=== PATIENT | female | born 1980 | race Caucasian/White ===

== ENCOUNTER 2016-09-14 16:38 | Outpatient (CLI) | payer MEDICAID ==
[~2016-09-14] VITALS: Ht 157.5 cm; Wt 78.2 kg
[2016-09-14 16:53] VITALS: Ht 157.5 cm; Wt 78.2 kg
[2016-09-14 16:54] VITALS: BP 111/72; PULSE 77; RESP 20
--- NOTE | 2016-09-14 19:23 | RADRPT ---
PROCEDURE: OB ultrasound for biophysical profile CLINICAL INDICATION: Biophysical profile. . TECHNIQUE: Multiple sonographic images of the pelvis were obtained. Transabdominal views are obta ined. COMPARISON: 09/12/2016 FINDINGS: Single intrauterine gestation. Presentation: Cephalic. Placenta: Anterior. No evidence of placental abruption. No evidence of placenta previa. breathing movement = 2/2 tone = 2/2 motion = 2/2 JOSHUA = 2/2 JOSHUA = 7.3 cm heart rate: 140 beats per minute IMPRESSION: Single intrauterine gestation. Biophysical profile 12/09 RPTAT: AADD .Melvin Aiken MD, MD Date Time Electronically viewed and signed by .Melvin Aiken MD, on 09/14/2016 19:22 .B/
--- NOTE | 2016-09-14 20:35 | TRIAGE ---
OB Triage Datetime Report Generated by CPN: 09/14/2016 20:35 Datetime: 09/14/2016 19:20 Membrane Status: Intact Datetime: 09/14/2016 18:58 Labor Evaluation Frequency: 4-9 Monitor Mode: External Duration (sec)2399: 50-120 Quality: Mild Pattern: Normal: <= 5 Contractions in 10 Minutes Resting Tone [place]: Relaxed Heart Rate FHR Baseline Rate: 130 Monitor Mode: External US FHR Baseline Changes: No Baseline Change Variability: Moderate 6-25 bpm Accelerations: 15X15 Decelerations: None Datetime: 09/14/2016 17:51 Headache: Denies Blurred Vision: No RUQ Epigastric Pain: Denies Facial Edema: None Labor Evaluation Frequency: irr Monitor Mode: External Duration (sec)2399: 60 Quality: Mild Pattern: Normal: <= 5 Contractions in 10 Minutes Resting Tone [place]: Relaxed Heart Rate FHR Baseline Rate: 150 Monitor Mode: External US FHR Baseline Changes: No Baseline Change Variability: Moderate 6-25 bpm Accelerations: 15X15 Decelerations: None Category: Category I Datetime: 09/14/2016 16:55 Vaginal Exam Dilatation (cms): 1.5 Effacement (%): 50 Station: -3 Exam By: PEDRO FARZIER [facility] Vaginal Bleeding: Normal Show Cervix, Consistency: Soft Cervix, Position: Posterior Datetime: 09/14/2016 16:41 Stage of : OB Triage Time of Arrival: 09/14/2016 16:41 EGA: 39.3 Arrived By: Ambulatory Arrived From: Home Chief Complaint: posible rom and bleeding Movement: Present Contractions: Irregular Time Contractions Began: 09/14/2016 16:00 Rupture of Membranes: Unsure Vaginal Discharge: Denies Recent Sexual Intercouse: Denies Abdominal Trauma: Not Applicable Patient Complaints: Other Time Provider Notified: 09/14/2016 17:50 Initial Plan: efm Maternal Assessment Level of Consciousness: Fully Conscious DTR's/Clonus: DTRs 2+; No Clonus Headache: Denies Blurred Vision: No Respiratory Effort: Unlabored; Regular Rhythm; Equal Expansion Breath Sounds, Left: Clear and Equal Breath Sounds, Right: Clear and Equal Nausea/Vomiting: Denies RUQ Epigastric Pain: Denies Lower Extremities Edema: None Degree: None Upper Extremities Edema: None Degree: None Facial Edema: None Temperature Route: Axillary Fall Risk Assessment History of Falling: (0) No Secondary Diagnosis: (0) No Ambulatory Aid: (0) Bedrest/Nurse Assist IV Therapy: (0) No Gait: (0) Normal/Bedrest/Immobile Mental Status: (0) Oriented to Own Ability Fall Score: 0 Fall Risk Score Definition: No Risk: No action required Labor Evaluation Frequency: none Monitor Mode: External Heart Rate FHR Baseline Rate: 136 Monitor Mode: External US FHR Baseline Changes: No Baseline Change Variability: Moderate 6-25 bpm Accelerations: 15X15 Decelerations: None Category: Category I Pain Assessment Pain Scale: 0
[2016-09-15] MEDS ORDERED: PRENAT PO (17:42)
--- NOTE | 2016-11-20 18:29 | PN ---
Triage Information Date/Time 09/14/16 Weeks of Gestation 39 : 4 Para: 0 Assessment/Plan CONTRACTIONS SHARON SIMPSON MD Nov 20, 2016 18:29
== END 2016-09-14 20:00 | disposition home or self-care (01) ==
LOC: OBT 16:38 → L-D 16:39 → OBT 20:00
PROVIDERS: ATTEND Obstetrics & Gynecology
DX: O62.9 Abnormality of forces of labor, unspecified (principal); Z3A.39 39 weeks gestation of pregnancy
CPT/HCPCS: 76818; G0463

== ENCOUNTER 2016-09-15 17:27 | Inpatient (IN) | payer MEDICAID ==
[~2016-09-15] VITALS: Ht 157.5 cm; Wt 78.5 kg
[2016-09-15 17:39] VITALS: Ht 157.5 cm; Wt 78.5 kg
[2016-09-15 17:40] VITALS: BP 112/69; PULSE 89; RESP 19
[2016-09-15] MEDS ORDERED: PRENAT PO (17:42)
[2016-09-15] MEDS ORDERED: LACTATED RINGER'S 1,000 ML IV SCH (17:54)
[2016-09-15] MEDS ORDERED: AMPICILLIN 2 GM/NS (PMX) 100 ML IV ONE (18:00)
[2016-09-15] MEDS ORDERED: LIDOCAINE 1% (MPF) 30 ML INJ INJ PRN (18:00)
[2016-09-15] MEDS ORDERED: IBUPROFEN 600 MG TAB PO PRN (18:00)
[2016-09-15] MEDS ORDERED: CARBOPROST 250 MCG INJ IM PRN ×2 (18:00→20:30)
[2016-09-15] MEDS ORDERED: BUTORPHANOL 2 MG INJ IV PRN (18:00)
[2016-09-15] MEDS ORDERED: MISOPROSTOL 200 MCG TAB PR PRN ×2 (18:00→20:30)
[2016-09-15] MEDS ORDERED: OXYTOCIN 30 UNITS/LR 500 ML IV PRN ×2 (18:00→20:30)
[2016-09-15] MEDS ORDERED: METHYLERGONOVINE 0.2 MG INJ IM PRN ×2 (18:00→20:30)
[2016-09-15] MEDS ORDERED: OXYTOCIN 30 UNITS/LR 500 ML IV SCH (18:00)
--- NOTE | 2016-09-15 18:25 | TRIAGE ---
OB Triage Datetime Report Generated by CPN: 09/15/2016 18:24 Datetime: 09/15/2016 17:58 Stage of : OB Triage Datetime: 09/15/2016 17:50 Frequency: 10 Monitor Mode: External Duration (sec)2399: 50-90 Quality: Mild Pattern: Normal: <= 5 Contractions in 10 Minutes Resting Tone [place]: Relaxed FHR Baseline Rate: 140 Monitor Mode: External US Variability: Moderate 6-25 bpm Accelerations: 15X15 Decelerations: Late; Variable Category: Category II Pain Scale: 7 Pain Presence: Intermittent Pain Type: Contraction Pain Location: Abdomen Pain Relief Measures: Comfort Measures Datetime: 09/15/2016 17:43 Dilatation (cms): 7.0 Effacement (%): 80 Station: -2 Exam By: bjacobo Vaginal Bleeding: Small Datetime: 09/15/2016 17:37 Assessment Type: Triage Level of Consciousness: Fully Conscious DTR's/Clonus: DTRs 2+; No Clonus Headache: Denies Blurred Vision: No Respiratory Effort: Unlabored; Regular Rhythm; Equal Expansion Breath Sounds, Left: Clear and Equal Breath Sounds, Right: Clear and Equal Nausea/Vomiting: Denies RUQ Epigastric Pain: Denies Lower Extremities Edema: None Upper Extremities Edema: None Facial Edema: None History of Falling: (0) No Secondary Diagnosis: (0) No Ambulatory Aid: (0) Bedrest/Nurse Assist IV Therapy: (0) No Gait: (0) Normal/Bedrest/Immobile Mental Status: (0) Oriented to Own Ability Fall Score: 0 Fall Risk Score Definition: No Risk: No action required Datetime: 09/15/2016 17:35 Time of Arrival: 09/15/2016 17:20 EGA: 39.4 Arrived By: Wheelchair Arrived From: Home Chief Complaint: UCs since 0800 this morning Movement: Present Contractions: Irregular Time Contractions Began: 09/15/2016 08:00 Contractions: 10 Rupture of Membranes: Denies Vaginal Bleeding: None Vaginal Discharge: Present Recent Sexual Intercouse: Denies Abdominal Trauma: Not Applicable Patient Complaints: Contractions Time Provider Notified: 09/15/2016 17:49 Provider Notified: Luis Initial Plan: Bi GODOY, Notify OB
--- NOTE | 2016-09-15 18:27 | RADRPT ---
PROCEDURE: Obstetrical ultrasound CLINICAL INDICATION: Bleeding TECHNIQUE: Multiple sonographic images of the pelvis were obtained. The images were reviewed on a PACS workstation. COMPARISON: Obstetrical ultrasound from 09/14/2016 FINDINGS: The cervix is not well visualized. There is a single viable intrauterine gestation. Cardiac activity is present with 125 beats per minute. There is a vertex presentation. The placenta is anterior. There is no evidence for an abruption or placenta previa. There is a subjectively normal amount of amniotic fluid. Measurements were made in order to determine age. The results are as follows (cm): BPD =9.18 HC =32.64 AC =37.81 FL =7.53 Estimated gestational age by ultrasound of approximately 38 weeks, 5 days. The estimated date of delivery by ultrasound is 09/24/2016. Estimated gestational age by LMP of approximately 39 weeks, 4 days. The estimated date of delivery by LMP is 09/18/2016. EFW = 3932 grams (80th percentile) IMPRESSION: Single viable intrauterine gestation of approximately 38 weeks, 5 days . The estimated date of delivery is 09/24/2016 . Dating by ultrasound is within 6 days of dating by LMP. Cephalic presentation. Estimated weight is in the 80th percentile. Anterior placenta without evidence of placenta previa or abruption. RPTAT: EE Physician Meena Date Time Electronically viewed and signed by Physician Meena on 09/15/2016 18:26 /
[2016-09-15 18:30] LABS: ADD SCAN DIFF NO
[2016-09-15 18:35] LABS: BASOPHILS % 0.3 % (0.0-2.0); EOSINOPHILS % 0.3 % (0.0-7.0); HEMATOCRIT 38.9 % (37.0-47.0); HEMOGLOBIN 13.1 g/dl (12.0-16.0); LYMPHOCYTES % 12.8 % (15.0-51.0); MEAN CORPUSCULAR HEMOGLOBIN 30.1 pg (29.0-33.0); MEAN CORPUSCULAR HGB CONC 33.7 g/dl (32.0-37.0); MEAN CORPUSCULAR VOLUME 89.4 fl (82.0-101.0); MEAN PLATELET VOLUME 11.6 fl (7.4-10.4); MONOCYTE # 0.8 10^3/ul (0.3-0.9); MONOCYTES % 9.5 % (0.0-11.0); NEUTROPHIL # 6.1 10^3/ul (1.6-7.5); NEUTROPHILS % 76.6 % (39.0-77.0); PLATELET COUNT 166 10^3/UL (140-415); RED BLOOD COUNT 4.35 10^6/ul (4.20-5.40); RED CELL DISTRIBUTION WIDTH 13.2 % (11.5-14.5)
--- NOTE | 2016-09-15 18:35 | HP ---
Date/Time of Note Date/Time of Note DATE: 09/15/16 TIME: 18:35 OB - History Hx of Present Free Text/Dictation iup 38 weeks in labor [id number] Care: Good Care Ultrasounds: Other Medical Complications: None Past Family/Social History * Past Medical, Surgical, Family and Obstetric Histories reviewed from chart. OB Admission Exam Vital Signs Vital Signs Vital Signs Date Time Temp Pulse Resp B/P Pulse Ox O2 Delivery O2 Flow Rate FiO2 09/15/16 17:40 97.7 89 19 112/69 Room Air OB Assessment/Plan Plan: Expectant Management LORIN ISABEL MD September 15, 2016 18:35
[2016-09-15] MEDS ORDERED: LACTATED RINGER'S 1,000 ML IV PRN (19:00)
[2016-09-15 19:01] LABS: INR 0.88; PARTIAL THROMBOPLASTIN TIME 27.5 Sec (25.0-35.0); PROTIME 11.9 Sec (12.2-14.2); PT RATIO 0.9
[2016-09-15] MEDS: OXYTOCIN 30 UNITS/LR 500 ML IV SCH ×2 (19:40→22:22)
[2016-09-15] MEDS ORDERED: DEXTROSE 5%-LR 1,000 ML IV SCH (20:24)
--- NOTE | 2016-09-15 20:24 | LDN ---
Date/Time of Note Date/Time of Note DATE: 09/15/16 TIME: 20:22 Delivery Summary 36 y/o at 39 4/7 wks delivered a male over intact perineum Weight: 7 lbs 11 oz [place]: 12/10 Time of delivery: 19:30 EBL: 200 ml Placenta Delivered: Spontaneously Meconium: none Episiotomy: No Anesthesia type: None Estimated blood loss: 200 Sponge & Needle done & correct: Yes All needle counts correct: Yes Any foreign bodies felt in the: No Problems: Infant Delivery Information Sex Sex: male Apgars 1 Minute: 8 5 Minute: 9 10 Minute: 10 Suctioning Nose & mouth suctioned at jean: Yes Umbilical Cord Umbilical cord with: 3 Vessels Cord presentations: nuchal cord (x1) Cord Blood was obtained: Yes JULIA DOYLE September 15, 2016 20:24
[2016-09-15] MEDS ORDERED: SENNA/DOCUSATE NA (8.6MG/50MG) TAB PO PRN (20:30)
[2016-09-15] MEDS ORDERED: DIBUCAINE 1% 30 GM OINT PR PRN (20:30)
[2016-09-15] MEDS ORDERED: OXYCODONE/ASPIRIN (4.88/325) TAB PO PRN (20:30)
[2016-09-15] MEDS ORDERED: ACETAMINOPHEN 325 MG TAB PO PRN (20:30)
[2016-09-15] MEDS ORDERED: ONDANSETRON 4 MG INJ IV PRN (20:30)
[2016-09-15] MEDS ORDERED: WITCH HAZEL/GLYCERIN PAD PR PRN (20:30)
[2016-09-15] MEDS ORDERED: DIPHENHYDRAMINE 50 MG INJ IV PRN (20:30)
[2016-09-15] MEDS ORDERED: BENZOCAINE 20% 56 ML SPRAY TOP PRN (20:30)
[2016-09-15] MEDS ORDERED: ZOLPIDEM 5 MG TAB PO PRN (20:30)
[2016-09-15 21:30] VITALS: BP 117/84; PULSE 65; RESP 18
[2016-09-15 22:00] VITALS: BP 114/66; PULSE 65; RESP 18
[2016-09-15] MEDS ORDERED: AMPICILLIN 1 GM/NS (PMX) 50 ML IV SCH (22:00)
[2016-09-15] MEDS: LANOLIN 7 GM TUBE TOP PRN (22:23)
[2016-09-16] VITALS: BP 100/58; PULSE 68; RESP 18
[2016-09-16] MEDS: IBUPROFEN 600 MG TAB PO SCH ×5 (00:28→23:33)
[2016-09-16] MEDS: LACTATED RINGER'S 1,000 ML IV* SCH ×2 (02:44→04:24)
[2016-09-16 04:00] VITALS: BP 102/53; PULSE 73; RESP 18
[2016-09-16 08:15] VITALS: BP 97/54; PULSE 68; RESP 18
[2016-09-16 08:16] LABS: ADD SCAN DIFF NO
[2016-09-16 08:47] LABS: BASOPHILS % 0.1 % (0.0-2.0); EOSINOPHILS % 0.4 % (0.0-7.0); HEMATOCRIT 33.4 % (37.0-47.0); HEMOGLOBIN 11.3 g/dl (12.0-16.0); LYMPHOCYTES # 1.2 10^3/ul (0.8-2.9); LYMPHOCYTES % 14.9 % (15.0-51.0); MEAN CORPUSCULAR HEMOGLOBIN 30.3 pg (29.0-33.0); MEAN CORPUSCULAR HGB CONC 33.8 g/dl (32.0-37.0); MEAN CORPUSCULAR VOLUME 89.5 fl (82.0-101.0); MEAN PLATELET VOLUME 12.1 fl (7.4-10.4); MONOCYTE # 0.7 10^3/ul (0.3-0.9); NEUTROPHIL # 6.2 10^3/ul (1.6-7.5); NEUTROPHILS % 74.8 % (39.0-77.0); PLATELET COUNT 140 10^3/UL (140-415); RED BLOOD COUNT 3.73 10^6/ul (4.20-5.40); RED CELL DISTRIBUTION WIDTH 13.2 % (11.5-14.5); WHITE BLOOD COUNT 8.3 10^3/ul (4.8-10.8)
[2016-09-16] MEDS: MULTIVIT/MIN/FOLATE/IRON/PREN TAB PO SCH (09:37)
--- NOTE | 2016-09-16 09:45 | PN ---
Date/Time of Note Date/Time of Note DATE: 09/16/16 TIME: 09:44 OB Subjective Subjective Subjective day 1 Afebrile VSs stable abdomen soft uterus firm lochia normal extremity normal ambulation encouraged Laboratory Tests Test 09/15/16 16:26 09/16/16 07:35 White Blood Count 8.010^3/ul 8.310^3/ul Red Blood Count 4.3510^6/ul 3.7310^6/ul Hemoglobin 13.1g/dl 11.3g/dl Hematocrit 38.9% 33.4% Mean Corpuscular Volume 89.4fl 89.5fl Mean Corpuscular Hemoglobin 30.1pg 30.3pg Mean Corpuscular Hemoglobin Concent 33.7g/dl 33.8g/dl Red Cell Distribution Width 13.2% 13.2% Platelet Count 71338^3/UL 51163^3/UL Mean Platelet Volume 11.6fl 12.1fl Neutrophils % 76.6% 74.8% Lymphocytes % 12.8% 14.9% Monocytes % 9.5% 9.0% Eosinophils % 0.3% 0.4% Basophils % 0.3% 0.1% Nucleated Red Blood Cells % 0.0/100WBC 0.0/100WBC Neutrophils # 6.110^3/ul 6.210^3/ul Lymphocytes # 1.010^3/ul 1.210^3/ul Monocytes # 0.810^3/ul 0.710^3/ul Eosinophils # 0.010^3/ul 0.010^3/ul Basophils # 0.010^3/ul 0.010^3/ul Nucleated Red Blood Cells # 0.010^3/ul 0.010^3/ul Prothrombin Time 11.9Sec Prothrombin Time Ratio 0.9 INR International Normalized Ratio 0.88 Activated Partial Thromboplast Time 27.5Sec Glucose Level 91mg/dl Hepatitis B Surface Antigen NEGATIVE Current Medications Medications (Trade) Dose Ordered Sig/[place] Route PRN Reason Start Time Stop Time Status Last Admin Dose Admin Lactated Ringer's 1,000 ml @ 125 mls/hr Q8H IV 09/15/16 17:54 09/15/16 21:54 DC 09/15/16 18:13 Ampicillin 100 ml @ 100 mls/hr ONCE ONCE IV 09/15/16 18:00 09/15/16 18:59 DC 09/15/16 18:13 Ampicillin (Ampicillin 1 Gm/ NS (Pmx)) 50 ml @ 100 mls/hr Q4H IV 09/15/16 22:00 09/15/16 22:00 DC Butorphanol Tartrate (Stadol) 2 mg Q2H PRN IV PAIN 09/15/16 18:00 09/15/16 21:54 DC Lidocaine 30 ml 30 ml ONCE PRN INJ EPISIOTOMY/TEARING 09/15/16 18:00 09/15/16 21:54 DC Oxytocin/Lactated Ringer's 500 ml @ 125 mls/hr ONCE -MAY REPEAT X1 IV 09/15/16 18:00 09/15/16 22:22 Oxytocin/Lactated Ringer's 500 ml @ 125 mls/hr ONCE IV 09/15/16 18:00 09/15/16 21:54 DC 09/15/16 20:15 Ibuprofen 600 mg 600 mg ONCE PRN PO Mild Pain (Pain Score 1-3) 09/15/16 18:00 09/15/16 21:54 DC Lactated Ringer's 1,000 ml @ 2,000 mls/hr Q30M PRN IV PRE-EPIDURAL BOLUS 09/15/16 19:00 09/15/16 21:54 DC Oxytocin/Lactated Ringer's 500 ml @ 0 mls/hr ONCE PRN IV For Hemorrhage Management 09/15/16 18:00 Methylergonovine Maleate (Methergine) 0.2 mg ONCE PRN IM VAGINAL BLEEDING 09/15/16 18:00 09/15/16 21:54 DC 09/15/16 19:58 Carboprost Tromethamine (Hemabate) 250 mcg ONCE PRN IM VAGINAL BLEEDING 09/15/16 18:00 09/15/16 21:54 DC Misoprostol 1000 mcg 1,000 mcg ONCE PRN [place] VAGINAL BLEEDING 09/15/16 18:00 09/15/16 21:54 DC Lactated Ringer's (Lr) 1,000 ml @ 125 mls/hr Q8H IV* 09/15/16 20:24 09/16/16 02:44 Ibuprofen (Motrin) 600 mg Q6 PO 09/16/16 00:00 09/16/16 06:11 Acetaminophen (Tylenol Tab) 650 mg Q4H PRN PO PAIN LEVEL 1-5 09/15/16 20:30 Oxycodone/Aspirin (Percodan) 1 tab Q3H PRN PO PAIN LEVEL 1-5 09/15/16 20:30 Ondansetron HCl (Zofran Inj) 4 mg Q6H PRN IV NAUSEA AND/OR VOMITING 09/15/16 20:30 Diphenhydramine HCl (Benadryl) 25 mg Q6H PRN IV PRURITUS 09/15/16 20:30 09/15/16 21:54 DC Zolpidem Tartrate (Ambien) 5 mg QHS PRN PO INSOMNIA 09/15/16 20:30 Senna/Docusate Sodium (Senokot-S) 1 tab BID PRN PO CONSTIPATION 09/15/16 20:30 Witch Tatiana/ Glycerin (Tucks Pads) 1 pad BEDSIDE MEDICATION PRN [place] HEMORRHOID/EPISIOTMY PAIN 09/15/16 20:30 Benzocaine (Dermoplast Muse) 1 spray BEDSIDE MEDICATION PRN TOP HEMORRHOID/EPISIOTMY PAIN 09/15/16 20:30 09/15/16 22:23 Dibucaine (Nupercainal) 1 applic BEDSIDE MEDICATION PRN [place] HEMORRHOID/EPISIOTMY PAIN 09/15/16 20:30 Lanolin (Bot-R-Sbtwyt) 1 applic BEDSIDE MEDICATION PRN TOP BEDSIDE FOR RICH TO NIPPLES 09/15/16 20:30 09/15/16 22:23 Measles/Mumps/ Rubella Vaccine Live (Mmr Ii Vaccine) 0.5 ml ONCE ONCE SC* 09/17/16 09:00 09/17/16 09:01 Diphtheria/ Tetanus/Acell Pertussis 0.5 ml 0.5 ml ONCE ONCE IM* 09/17/16 09:00 09/17/16 09:01 Oxytocin/Lactated Ringer's 500 ml @ 0 mls/hr ONCE PRN IV For Hemorrhage Management 09/15/16 20:30 Methylergonovine Maleate (Methergine) 0.2 mg ONCE PRN IM VAGINAL BLEEDING 09/15/16 20:30 Carboprost Tromethamine (Hemabate) 250 mcg ONCE PRN IM VAGINAL BLEEDING 09/15/16 20:30 Misoprostol 1000 mcg 1,000 mcg ONCE PRN [place] VAGINAL BLEEDING 09/15/16 20:30 Dextrose/Lactated Ringer's (D5-Lr) 1,000 ml @ 125 mls/hr Q8H IV 09/15/16 20:24 09/15/16 21:54 DC Prenat Multivit/ Carcass Trimmer/Iron/Folic Ac ( S) 1 tab DAILY PO 09/16/16 09:00 09/16/16 09:37 SHARON SIMPSON MD September 16, 2016 09:45
[2016-09-16 16:00] VITALS: BP 96/63; PULSE 74; RESP 19
[2016-09-16 19:40] VITALS: BP 99/61; PULSE 67; RESP 19
[2016-09-17 04:25] VITALS: BP 112/62; PULSE 66; RESP 17
[2016-09-17] MEDS: IBUPROFEN 600 MG TAB PO SCH ×3 (05:40→17:36)
[2016-09-17 07:45] VITALS: BP 100/55; PULSE 74; RESP 18
[2016-09-17] MEDS: MULTIVIT/MIN/FOLATE/IRON/PREN TAB PO SCH (08:57)
[2016-09-17] MEDS ORDERED: MEASLES,MUMPS,RUBELLA VACCINE INJ SC* ONE (09:00)
[2016-09-17] MEDS ORDERED: DIPHTH/TET/ACEL PERTUSS (ADULT) 0.5 ML VIAL IM* ONE (09:00)
--- NOTE | 2016-09-17 10:16 | PD.PPDC ---
EMPLOYEE RELATIONS MANAGER Discharge Instruction Condition Patient Condition: Good Diet Diet: Resume Regular Diet Activity/Restrictions Activity: Normal Activity May Shower Restrictions: No Exercising No Lifting No Driving No Sexual Activity Nothing in the Vagina No [place] No Tampons, douche Follow-up Follow-up with Physician: 2, Week/Weeks Return to clinic for MANAGER CRISIS Instructions: Fever greater than 101 Worsening abdominal pain Excessive Vaginal Bleeding More than 2 pads per hour Unable to tolerate diet OB Instructions: Breast Tenderness Headache SHARON SIMPSON MD September 17, 2016 10:16
--- NOTE | 2016-09-17 10:19 | DS ---
Date/Time of Note Date/Time of Note DATE: 09/17/16 TIME: 10:17 Discharge Summary Admission/Discharge Info Admit Date/Time September 15, 2016 at 17:58 Discharge Date/Time September 17, 2016 at 10:15 AM Final Diagnosis Post normal vaginal delivery Patient Condition: Good Procedures Normal vaginal delivery Hx of Present Illness Term Hospital Course Satisfactory Home Meds Reported Medications Multivit/Min/Fol Ac/Iron/Pren* ( S*) 1 Tab Tab, 1 TAB PO DAILY, TAB 09/15/16 Follow-up Plan Follow-up at the clinic in 2 weeks Primary Care Provider Care Physician No Primary Time spent on discharge: > 30 minutes SHARON SIMPSON MD September 17, 2016 10:19
[2016-09-17] MEDS: LANOLIN 7 GM TUBE TOP PRN (11:49)
[2016-09-17 15:50] VITALS: BP 106/62; PULSE 65; RESP 19
== END 2016-09-17 19:40 | disposition home or self-care (01) | DRG 775 ==
LOC: OBT 17:27 → L-D 17:27 → OBT 17:58 → L-D 17:58 → PP1 21:20
PROVIDERS: ADMIT Obstetrics & Gynecology; ATTEND Obstetrics & Gynecology
PROC: 10E0XZZ Delivery of Products of Conception, External Approach (ICD-10-PCS; principal; 2016-09-15)
DX: O69.81X0 Labor and delivery complicated by cord around neck, without compression, not applicable or unspecified (principal); Z37.0 Single live birth; Z3A.39 39 weeks gestation of pregnancy
CPT/HCPCS: 76815; 82947; 85025; 85610; 85730; 86592; 86900; 86901; 87340; 90715; G0463; J0290; J2210; J2590; J7120; J7121